=== PATIENT | female | born 1975 | race Caucasian/White ===

== ENCOUNTER 2016-11-30 18:31 | Emergency (ER) | payer SELFPAY ==
[~2016-11-30 18:31] MED LIST: ACYCLOVIR400 MG PO; ALBUTEROL17 GM INH; ATENOLOL; ATENOLOL PO; AUGMENTIN PO; BACTROBAN22 GM; CARVEDILOL6.25 MG PO; CELEXA20 MG PO; FENOFIBRATE145 MG PO; FLEXERIL PO; HCTZ; HCTZ PO; HYDROCODON-ACE1 EAC4 PO; HYDROCODON-ACE1 EAC9; IBUPROFEN PO; KEFLEX500 M2 PO; LASIX20 MG PO; LEVOXYL150 MCG PO; MEDROL4 MG/DOSE- PO; METHOCARBAMOL500 MG PO; MICRO-K PO; NAPROSYN375 MG PO; NAPROSYN500 MG PO; NEURONTIN; NEURONTIN300 MG PO; NORVASC PO; PREDNISONE PO; ROBAXIN; SYNTHROID; SYNTHROID PO; SYNTHROID125 PO; ULTRAM PO; VICODIN 5/500 T1 TAB PO; VICODIN PO; ZANAFLEX PO; ZESTRIL10 MG PO; ZITHROMAX1 G/PKT PO
== END 2016-11-30 20:35 | disposition home or self-care (01) ==
LOC: CED 18:31 → CFTX 20:01
DX: Z76.0 Encounter for issue of repeat prescription (principal); I10 Essential (primary) hypertension; F17.210 Nicotine dependence, cigarettes, uncomplicated; Z79.899 Other long term (current) drug therapy; Z88.8 Allergy status to other drugs, medicaments and biological substances
CPT/HCPCS: 99282